=== PATIENT | male | born 1940 | race Caucasian/White ===

== ENCOUNTER → 2016-11-05 | Outpatient (CLI) | payer OTHER ==
[~2016-11-05] MED LIST: ACETAMINOPHEN325 M1 PO; ACIDOPHILUS1 EAC3 PO; ADULT LOW DOSE81 MG PO; APAP500 PO; ATIVAN0.5 MG PO; AVODART0.5 MG PO; AZO CRANBERRY250 MG PO; CELEBREX 200 M200 M1 PO; CERTAVITE SR-A1 EACH PO; COLACE100 MG PO; DIPHENHIST50 MG PO; FLAXSEED OIL1000 MG PO; FLOMAX0.4 MG PO; FUROSEMIDE 40 M40 M1 PO; KLOR-CON 1010 MEQ PO; LASIX 40 MG TAB40 M2 PO; LIORESAL 10 MG10 MG PO; LOPRESSOR 12.12.5 MG PO; LOPRESSOR25 PO; MAXIPIME 1 GM/D51 G1 IV; MIRALAX17 GM PO; NAPROSYN500 MG PO; NEPHROCAPS SOFT1 CAP PO; NEURONTIN 300300 M1 PO; NEURONTIN600 MG PO; NITROFURANTOIN100 MG PO; NORCO 5-325 TA1 EACH PO; OMEPRAZOLE20 M2 PO; OMEPRAZOLE20 MG PO; OXYCODONE HCL 55 MG PO; PERCOCET PO; SENNA8.6 MG PO; TAMSULOSIN HCL0.4 MG PO; VANCOMYCIN HCL 11 G2 IVPB; VICODIN 5-5001 EACH PO; VITAMIN D3400 UNIT PO
== END | disposition home or self-care (01) ==
LOC: RAD 08:13
DX: M16.12 Unilateral primary osteoarthritis, left hip (principal)

== ENCOUNTER → 2017-03-07 | Outpatient (CLI) | payer OTHER ==
[~2017-03-07] VITALS: Ht 170.2 cm; Wt 90.2 kg
[~2017-03-07] MED LIST changes: +ACIDOPHILUS1 EACH PO; +BACTRIM DS TAB1 EACH PO; +CIPRO500 MG PO; +LASIX 20 MG TAB20 MG PO; +OYSTER SHELL 51 EACH PO; +POTASSIUM20 PO; +SMZ/TMP; +TRAMADOL 50 MG50 MG PO
--- NOTE | ~2017-03-07 | HPC ---
[facility] [place] [address] PAIN MANAGEMENT CONSULTATION Name: LUCIO RODRÍGUEZ Room #: REG EMY [place]#: [id number] Admission: 03/07/17 Attend Phys: Kameron Noguera DO Discharge: Date of : 40 Report #: [id number] THIS REPORT FOR: //name// CC: Eleno Noguera HISTORY OF PRESENT ILLNESS: The patient is a 76-year-old gentleman seen in consultation at the request of Dr. Salazar Shelley for evaluation of pain in left hip, consideration for injection of same. The patient presents to the pain clinic today noting he had had back surgery on 07/21/2016 at [facility]. It sounds like he had an anterior-posterior staged lumbar fusion procedure. His chronic radicular pain, left and right leg did get better, though he has had some chronic left pain since. He is currently in rehabilitation trying to regain some mobility functions. He did have a fluoroscopically-guided left hip joint injection by Interventional Radiology on 11/05/2016 with excellent improvement of his left groin and hip pain. This lasted until earlier this month. Pain has begun to recur without antecedent trauma and overuse. Rates pain anywhere from 6-8 on a 0-10 visual analog scale, exacerbated with weightbearing and movement of the left hip. Denies specific radicular symptoms. REVIEW OF SYSTEMS: Complete review of systems attached to chart, was gone over with the patient. a 76-year-old gentleman, does not smoke or drink alcohol to excess. History of non-insulin dependent diabetes, currently treated with no medications. History of cirrhosis and a blood dyscrasia, though the patient is not aware of the specific diagnosis. History of benign prostatic hypertrophy with some component of urinary retention, uses tamsulosin and now has chronic indwelling Potter catheter. Gastroesophageal reflux for which he takes omeprazole. Lorazepam for some chronic anxiety, gabapentin, baclofen, oxycodone, tramadol for pain. 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 PHYSICAL EXAMINATION: GENERAL: Reveals a 5 feet 8 inches, 90 kilograms, gentleman, BMI is 31.1 kilograms per meter squared. VITAL SIGNS: Blood pressure 136/67, pulse 77, respirations 16. NECK: Thyroid unremarkable. HEART: Regular and rhythmical at this time. LUNGS: Clear. NEUROLOGIC: Cranial 2-12 are grossly intact. He is alert and oriented to person, place and time. Upper extremity strength is generally preserved. Modestly endomorphic build. Lower extremity strength is diminished, but generally symmetric, +1 pretibial edema in lower extremities, significant pain with rotation or movement of left hip, pain with weightbearing of the left hip. Markedly antalgic gait. [address] [address] PAIN MANAGEMENT CONSULTATION Name: LUCIO RODRÍGUEZ Room #: REG [facility] Darrick#: [id number] Admission: 03/07/17 Attend Phys: Kameron Noguera DO Discharge: Date of : 40 Report #: [id number] ASSESSMENT: 1. Degenerative joint disease, left hip. 2. Status post lumbar decompressive laminectomy. 3. Chronic debilitation. 4. History of cirrhosis. RECOMMENDATIONS: Left hip injection under fluoroscopy today. Follow up simply as needed. PROCEDURE NOTE: After written informed consent was obtained, the patient was taken to fluoroscopy suite, placed in the supine position. Skin overlying the left hip was cleansed with ChloraPrep. Skin wheal with Xylocaine was raised. Using a 22-gauge stylet needle, the needle was advanced to contact the left hip joint immediately distal to the femoral cap. Negative aspiration was accomplished. 1 mL of Omnipaque was injected, which showed spread within the joint. This was followed with 40 mg triamcinolone plus 2 mL of 0.5% preservative-free bupivacaine. Needle was removed. The area was cleansed, Band-Aids applied. The patient was told to observe the area for any signs of infection, use ice today, report to the ER If he has any signs of infection including systemic infection i.e. hyperpyrexia, etc. Thank you for allowing me to participate in the patient's care. We will see him in followup simply as needed. <ELECTRONICALLY SIGNED> By: Kameron Noguera DO 03/14/17 1427 1732 0005 Kameron Noguera DO /nt
[2017-03-07 14:08] VITALS: BP 132/67
== END ==
LOC: PAIN 07:12
DX: M16.12 Unilateral primary osteoarthritis, left hip (principal); R53.81 Other malaise; I10 Essential (primary) hypertension; K21.9 Gastro-esophageal reflux disease without esophagitis; M96.1 Postlaminectomy syndrome, not elsewhere classified; D69.6 Thrombocytopenia, unspecified; E11.9 Type 2 diabetes mellitus without complications; M79.2 Neuralgia and neuritis, unspecified; N40.1 Benign prostatic hyperplasia with lower urinary tract symptoms; N39.498 Other specified urinary incontinence; R39.198 Other difficulties with micturition; Z87.19 Personal history of other diseases of the digestive system; Z98.890 Other specified postprocedural states

== ENCOUNTER 2017-03-10 20:48 | Inpatient (IN) | payer OTHER ==
[~2017-03-10] VITALS: Ht 172.7 cm; Wt 81.7 kg
--- NOTE | ~2017-03-10 | EKG ---
[address] [employer] [place] [address] ELECTROCARDIOGRAM REPORT Name: ANNELUCIO Powers Room #: 170-10 ADM IN M.R.#: [id number] Admission: 03/10/17 Attend Phys: Velia Barber Discharge: Date of : 40 Report #: [id number] THIS REPORT FOR: //name// [facility] ED Test Date: 2017-03-10 Test Time: 22:35:51 Pat Name: LUCIO RODRÍGUEZ Department: Room: 170 Gender: M Flight Agent: : 1940 Requested By: Titi Arguello Order Number: [id number] MD: Guicho Haddad Measurements Intervals [place] Rate: 125 P: MS: QRS: 42 QRSD: 91 T: -55 QT: 293 QTc: 423 Interpretive Statements Atrial flutter with predominant 2:1 AV block Borderline repolarization abnormality Compared to ECG 02/03/2010 12:03:41 2:1 AV block now present Sinus rhythm no longer present Electronically Signed On 03-11-2017 8:37:39 CDT by Guicho Haddad [email or web address] <ELECTRONICALLY SIGNED> By: Guicho Haddad MD, [facility] 03/11/17 0837 34 Guicho Haddad MD, [facility] /EPI
--- NOTE | ~2017-03-10 | HC ---
[facility] [place] [address] CONSULTATION Name: ANNELUCIO Priya Room #: 454-P [facility] IN M.R.#: [id number] Admission: 03/10/17 Attend Phys: Velia Barber Discharge: Date of : 40 Report #: [id number] THIS REPORT FOR: //name// CC: Eleno Shelley REASON FOR CONSULTATION: I was asked to evaluate concerning fever and chills. 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 Over the last several days, issues have been left hip steroid injection on 03/07. Also, noted issues with his chronic indwelling Potter catheter, which blocked up. It had to be exchanged. Subsequently, he has developed acute onset yesterday fever and chills. No nausea, vomiting, or diarrhea. No cough or sputum production. No decubiti. He has not noticed any rash. He is on Bactrim suppressive therapy for his spine for he was not considered a reasonable surgical candidate in 2016. He notes that his back pain has been under good control. His main complaints have been arthritis symptoms in his knees and his left hip. He has had a right total hip arthroplasty in 2008, which has been functioning well. He has had lumbar surgery in 2016. Previous cerebral accident, cirrhosis of the liver, and neurogenic bladder. ALLERGIES: None. MEDICATIONS: As noted on his MAR, including his Bactrim and was started on vancomycin and Zosyn last evening through the emergency room. Medications otherwise as noted on his MAR. FAMILY HISTORY: Noncontributory. SOCIAL HISTORY: penitentiary resident, nonsmoker, no significant alcohol intake. REVIEW OF SYSTEMS: Noted above. PHYSICAL EXAMINATION: VITAL SIGNS: Maximum temperature is 102.6 degrees yesterday, now he is afebrile and hemodynamically stable. GENERAL: He was alert and cooperative and pleasant, in no acute distress, lying in bed. He did have a fair amount of pain mostly in his knees when he tried to roll over in bed. He is limited in his mobility. HEENT: Unremarkable other than wears glasses. NECK: Supple, no adenopathy. CHEST: Clear. HEART: Regular without murmur. ABDOMEN: Soft with mild tenderness in the lower abdomen. I did not appreciate [facility] [address] [place] [address] CONSULTATION Name: ANNELUCIO Room #: 454-P [facility] IN .R.#: [id number] Admission: 03/10/17 Attend Phys: Velia Barber Discharge: Date of : 40 Report #: [id number] any masses. Mild tenderness in the right CVA. GENITOURINARY: External genitalia unremarkable with indwelling Potter catheter. EXTREMITIES: Left hip site was unremarkable. Right hip site with 2+ edema and associated erythema both anteriorly and laterally. Range of motion in the right hip was unremarkable. Advanced degenerative arthritis in both knees. He had 2+ edema in both lower extremities. LABORATORY STUDIES: Blood cultures 1 of 2 showing gram-negative bacilli. Urine cultures pending. Urinalysis showed leukocytes and bacteria. Chest x-ray was clear. Sodium 140, potassium 4.3, bicarbonate 29, creatinine 1.4, and alkaline phosphatase 123. Liver function test normal. Hemoglobin 11.9, white count was 7.4, platelet count was 92,000. Lactate was 1.9. IMPRESSION: A 76-year-old long term resident with gram-negative bacteremia, acute onset of fever associated with recent complications from his chronic indwelling Potter catheter. I suspect urinary tract source of his presentation and bacteremia. He also has some erythema to the right hip and thigh, whether this is venous stasis from his edema or not is yet to be determined. Did not have symptoms to suggest prosthetic joint infection at this point in time. His left hip seems to have improved following steroid injection. No signs of diarrhea. No other intraabdominal source suspected. RECOMMENDATIONS: We will continue vancomycin and Zosyn pending final culture results. 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 Vancomycin will cover this satisfactorily. We will decide on his final antibiotic program following culture results. <ELECTRONICALLY SIGNED> By: Neil Shelley MD 03/13/17 0951 1425 1539 Neil Shelley MD /nt
--- NOTE | ~2017-03-10 | H ---
[facility] [place] [address] HISTORY AND PHYSICAL Name: LUCIO RODRÍGUEZ Room #: 454-P ADM IN .R.#: [id number] Admission: 03/10/17 Attend Phys: Velia Barber Discharge: Date of : 40 Report #: [id number] THIS REPORT FOR: //name// CC: Eleno Shelley DATE OF SERVICE: 03/11/2017 CHIEF COMPLAINT: Fever. HISTORY OF PRESENT ILLNESS: The patient is a 76-year-old gentleman with a chronic diskitis, who was sent to the Emergency Room from his care facility with fever. Symptoms began overnight when he complained of chills and temperature was noted at 102.6. Upon arrival to ER, he was complaining of chills and general body aches. He was treated for diskitis in the past with IV antibiotics and continues with oral Bactrim at this point, he has been living [facility] [place] [facility] for quite some time. He was due to have followup appointments, but when fever developed he was routed to the Emergency Room. PAST MEDICAL HISTORY: Cerebrovascular accident, history of unspecified cirrhosis, chronic Potter catheter. PAST SURGICAL HISTORY: He had had a lumbar surgery 2016. FAMILY HISTORY: Unknown. SOCIAL HISTORY: No current alcohol or tobacco use. ALLERGIES: None. MEDICATIONS: Baclofen, Lasix, potassium, Bactrim, tramadol, acidophilus, Flomax, Prilosec. REVIEW OF SYSTEMS: He denies headache, chest pain, shortness of breath, abdominal pain, nausea, vomiting, diarrhea, constipation, dysuria, syncope. OBJECTIVE: VITAL SIGNS: Temperature 36.4, pulse 78, respirations 16, blood pressure 116/59, O2 sat 100% on room air. GENERAL: He was asleep in the ER, but easily arousable, in no distress. Heart rate was better. HEAD AND NECK: Unremarkable. LUNGS: Clear. HEART: Regular. ABDOMEN: Soft, normoactive bowel sounds. GENITOURINARY: There is a Potter catheter. [facility] [address] [place] [address] HISTORY AND PHYSICAL Name: LUCIO RODRÍGUEZ Priya Room #: 454-P [facility] IN ..#: [id number] Admission: 03/10/17 Attend Phys: Velia Barber Discharge: Date of : 40 Report #: [id number] EXTREMITIES: No cyanosis, clubbing or edema. NEUROLOGIC: Global strength , 2/5 in the legs. LABORATORY DATA: Revealed a urinalysis with bacteria, white cells, nitrite, creatinine 1.4 with potassium 4.3. Initial lactic acid was 3.1, after fluids down to 1.9. White cell count of 7.4. ASSESSMENT: 1. Sepsis. 2. Febrile illness, possible urinary versus spinal source given history. 3. Chronic lumbar diskitis. 4. Chronic Potter catheter. 5. Cerebrovascular disease. 6. Chronic urinary retention with Potter catheter. PLAN: At this point, he is stabilized in ICU with fluid resuscitation and additional antibiotics have been ordered. Dr. Neil Shelley has been consulted, although his Bactrim for now is working with IV antibiotics until further information available, it is noted from 06/2016 that he has had chronic Potter due to retention and this will continue Lovenox for DVT prophylaxis for now and watch his platelet count. He continues do not resuscitate status. <ELECTRONICALLY SIGNED> By: Remy Hopkins MD 03/11/17 1230 0920 1004 Remy Hopkins MD /nt
--- NOTE | ~2017-03-10 | D ---
[facility] [place] [address] DISCHARGE SUMMARY Name: MEERITALUCIO BOWIE Room #: 310-P [facility] IN .R.#: [id number] Admission: 03/10/17 Attend Phys: Velia Barber Discharge: 03/14/17 Date of : 40 Report #: [id number] THIS REPORT FOR: //name// CC: Eleno Shelley DATE OF SERVICE: 03/14/2017 FINAL DIAGNOSES: 1. Sepsis. 2. Urinary tract infection. 3. Obstructive uropathy. 4. Chronic vertebral diskitis. 5. Anemia of chronic disease. HOSPITAL COURSE: The patient was admitted with fever and was diagnosed with sepsis, a urinary source was considered the issue. Ultimately, urine and blood grew Enterobacter. Dr. Neil Shelley was consulted and managed antibiotics. He stabilized with conservative medical treatment. Do not resuscitate status continued along with his usual home medications. He takes Bactrim for chronic vertebral osteo suppression. He had no other interval complications. PHYSICAL EXAMINATION: GENERAL: On the day of discharge, he was awake and alert, eating breakfast. VITAL SIGNS: He had stable vital signs and had been afebrile. LUNGS: Clear. HEART: Regular. ABDOMEN: Soft, normoactive bowel sounds. EXTREMITIES: Showed no edema. Urine was draining into a Potter catheter, clear yellow. PLAN: He will transfer back to a detention facility with diet and activity as tolerated, physical and occupational therapy and continue with chronic Potter for chronic urinary obstruction. The center care facility should irrigate as needed and reposition if not draining properly. Continue Cipro for 10 days and continue his Bactrim suppression indefinitely. He will continue do not resuscitate status. <ELECTRONICALLY SIGNED> By: Remy Hopkins MD 03/15/17 0814 0832 0846 Remy Hopkins MD /nt
[~2017-03-10 20:48] MED LIST changes: -BACTRIM DS TAB1 EACH PO; -CIPRO500 MG PO
[2017-03-10 21:10] LABS: URINE BILIRUBIN NEGATIVE (Negative); URINE BLOOD 3+ (Negative); URINE COLOR YELLOW; URINE GLUCOSE-RANDOM* NEGATIVE (Negative); URINE KETONES NEGATIVE (Negative); URINE LEUKOCYTES-REFLEX 1+ (Negative); URINE PROTEIN (DIPSTICK) 1+ (Negative); URINE SPECIFIC GRAVITY 1.015 (1.003-1.035)
[2017-03-10 21:26] LABS: CALCIUM OXALATE 4-10 Moderate /LPF (None Seen)
[2017-03-10 21:27] LABS: AMORPHOUS PHOSPHATES Few /LPF (None Seen); CASTS None Seen /LPF (None Seen); SQUAMOUS None Seen /LPF (0-3); URINE RBC >20 Many /HPF (0-2)
[2017-03-10 21:31] LABS: HEMATOCRIT 35.4 % (42.0-52.0); HEMOGLOBIN 11.9 gm/dL (14.0-18.0); MCH 31.7 pg (26.0-34.0); MCHC 33.7 g/dL (28.0-37.0); PLATELET COUNT 92 thou/uL (150-400); RBC 3.77 mil/uL (4.50-6.00); RDW 14.8 % (10.5-14.5); WBC 7.4 thou/uL (4.0-11.0)
[2017-03-10 21:35] LABS: CREATININE 1.4 mg/dL (0.7-1.3); POTASSIUM 4.3 mmol/L (3.5-5.1)
[2017-03-10 21:37] LABS: MANUAL DIFF YES
[2017-03-10 21:40] LABS: ALBUMIN 3.6 g/dL (3.4-5.0); TOTAL BILIRUBIN 0.8 mg/dL (<0.1-1.0); TOTAL PROTEIN 7.7 g/dL (6.4-8.2)
[2017-03-10 22:27] LABS: ABSOLUTE NEUTROPHILS 6.5 thou/uL (1.4-8.2); ANISOCYTOSIS SLIGHT; TOTAL CELL COUNT 100
[2017-03-11 07:17] VITALS: BP 116/59
[2017-03-11 09:37] VITALS: BP 110/51
[2017-03-11 10:19] VITALS: BP 117/64
[2017-03-11 12:00] VITALS: BP 111/62
[2017-03-11 16:00] VITALS: BP 124/68
[2017-03-11 18:09] LABS: CALCIUM 8.5 mg/dL (8.5-10.1); POTASSIUM 3.9 mmol/L (3.5-5.1)
[2017-03-11 19:28] VITALS: BP 103/52
[2017-03-12 00:15] VITALS: BP 115/64
[2017-03-12 04:15] VITALS: BP 117/63
[2017-03-12 04:47] LABS: HEMATOCRIT 26.3 % (42.0-52.0); MCHC 34.4 g/dL (28.0-37.0); MCV 93.2 fL (80.0-100.0); RBC 2.82 mil/uL (4.50-6.00); RDW 14.8 % (10.5-14.5); WBC 6.4 thou/uL (4.0-11.0)
[2017-03-12 05:07] LABS: CALCIUM 8.6 mg/dL (8.5-10.1); POTASSIUM 4.1 mmol/L (3.5-5.1)
[2017-03-12 07:22] VITALS: BP 118/59
[2017-03-12 11:35] VITALS: BP 120/69
[2017-03-12 15:43] VITALS: BP 121/62
[2017-03-12 19:16] VITALS: BP 128/71
[2017-03-13 03:50] VITALS: BP 152/88
[2017-03-13 07:56] VITALS: BP 141/78
[2017-03-13 17:00] VITALS: BP 110/74
[2017-03-14 04:00] VITALS: BP 128/73
[2017-03-14 08:00] VITALS: BP 144/82
[2017-03-14] MEDS ORDERED: CIPRO500 MG PO (08:26)
[2017-03-14] MEDS ORDERED: BACTRIM DS TAB1 EACH PO (08:27)
== END 2017-03-14 16:50 | DRG 871 ==
LOC: ER 20:48 → EROBS 22:50 → 3N 22:50 → 4W 03-11 10:07 → 3N 03-13 18:04
PROVIDERS: Internal Medicine Geriatric Medicine; Physician Assistant
DX: A41.9 Sepsis, unspecified organism (principal); N17.0 Acute kidney failure with tubular necrosis; N39.0 Urinary tract infection, site not specified; L03.90 Cellulitis, unspecified; M46.20 Osteomyelitis of vertebra, site unspecified; N13.9 Obstructive and reflux uropathy, unspecified; D63.8 Anemia in other chronic diseases classified elsewhere; M46.46 Discitis, unspecified, lumbar region; K74.60 Unspecified cirrhosis of liver; Z90.49 Acquired absence of other specified parts of digestive tract; Z79.899 Other long term (current) drug therapy; Z86.73 Personal history of transient ischemic attack (TIA), and cerebral infarction without residual deficits
CPT/HCPCS: 10045; 10096

== ENCOUNTER 2017-08-10 02:15 | Emergency (ER) | payer OTHER ==
[~2017-08-10] VITALS: Ht 172.7 cm; Wt 95.3 kg
[~2017-08-10 02:15] MED LIST changes: +BACTRIM DS TAB1 EACH PO; +CIPRO500 MG PO
[2017-08-10] MEDS ORDERED: LASIX 20 MG TAB20 MG PO (02:42)
[2017-08-10] MEDS ORDERED: DOCUSATE SODIU100 MG PO (02:42)
[2017-08-10] MEDS ORDERED: ACIDOPHILUS1 EAC3 PO (02:42)
[2017-08-10] MEDS ORDERED: MULTIPLE VITAM1 EAC2 PO (02:43)
[2017-08-10] MEDS ORDERED: MAGOX 400400 MG PO (02:43)
[2017-08-10] MEDS ORDERED: IRON325 PO (02:44)
[2017-08-10] MEDS ORDERED: OMEPRAZOLE 20 M20 MG PO (02:44)
[2017-08-10] MEDS ORDERED: POTASSIUM20 PO (02:44)
[2017-08-10] MEDS ORDERED: OYST-CAL-500500 MG PO (02:45)
[2017-08-10] MEDS ORDERED: BACTRIM DS TAB1 EACH PO (02:45)
[2017-08-10] MEDS ORDERED: TRAMADOL 50 MG50 MG PO (02:46)
[2017-08-10] MEDS ORDERED: LIORESAL 10 MG10 MG PO (02:46)
[2017-08-10] MEDS ORDERED: ATIVAN0.5 MG PO (02:46)
[2017-08-10] MEDS ORDERED: OXYCODONE HCL 55 MG PO (02:47)
[2017-08-10 03:02] LABS: HEMATOCRIT 27.1 % (42.0-52.0); HEMOGLOBIN 9.4 gm/dL (14.0-18.0); MCH 33.6 pg (26.0-34.0); MCHC 34.6 g/dL (28.0-37.0); MCV 97.2 fL (80.0-100.0); PLATELET COUNT 62 thou/uL (150-400); RBC 2.79 mil/uL (4.50-6.00); RDW 13.9 % (10.5-14.5); WBC 4.5 thou/uL (4.0-11.0)
[2017-08-10 03:04] LABS: MANUAL DIFF YES
[2017-08-10 03:05] LABS: CALCIUM 9.1 mg/dL (8.5-10.1); CREATININE 1.1 mg/dL (0.7-1.3); POTASSIUM 4.2 mmol/L (3.5-5.1)
[2017-08-10 03:24] LABS: ABSOLUTE NEUTROPHILS 3.4 thou/uL (1.4-8.2); TOTAL CELL COUNT 100
[2017-08-10 03:25] LABS: LARGE PLATELETS OCCASIONAL
== END 2017-08-10 04:53 | disposition home or self-care (01) ==
LOC: ER 02:15
PROVIDERS: Emergency Medicine
DX: E11.40 Type 2 diabetes mellitus with diabetic neuropathy, unspecified (principal); M86.9 Osteomyelitis, unspecified; F41.9 Anxiety disorder, unspecified; N40.0 Benign prostatic hyperplasia without lower urinary tract symptoms; Z87.440 Personal history of urinary (tract) infections; Z90.49 Acquired absence of other specified parts of digestive tract

== ENCOUNTER 2017-09-23 09:30 | Inpatient (IN) | payer OTHER ==
[~2017-09-23] VITALS: Ht 172.7 cm; Wt 94.4 kg
--- NOTE | ~2017-09-23 | D ---
[facility] [place] [address] DISCHARGE SUMMARY Name: LUCIO RODRÍGUEZ Room #: 408-P [facility] IN M.R.#: [id number] Admission: 09/26/17 Attend Phys: Remy Hopkins MD Discharge: 10/04/17 Date of : 40 Report #: [id number] THIS REPORT FOR: //name// CC: Neil Lacy FINAL DIAGNOSES: 1. Cellulitis of the lower legs. 2. Venous stasis wounds, both lower legs. 3. Cirrhosis. HOSPITAL COURSE: The patient was admitted with fever and pain and swelling of the legs. He was diagnosed with cellulitis. Multiple consultants managed his case and antibiotics were ordered. He had wound care with bedside debridement at times and Pulsavac care. We researched the possibility of LTAC placement for ongoing wound care and antibiotics, but his insurance declined this. Otherwise, he was treated symptomatically. Once I felt his legs were in a suitable situation, he will be managed in a assisted level and transferred back to [facility] for continued wound care. I have discussed antibiotics with Dr. Shelley and oral Levaquin was ordered. DISPOSITION: He will return to [facility]. Wound care per written orders. Diet and activity as tolerated. He has a chronic Potter catheter, which is being managed by the in-house physician. I have added Demadex to his regimen. He will continue 10 more days of Levaquin. <ELECTRONICALLY SIGNED> By: Remy Hopkins MD 10/06/17 0957 1246 1301 Remy Hopkins MD /nt
--- NOTE | ~2017-09-23 | HC ---
[facility] [place] [address] CONSULTATION Name: LUCIO RODRÍGUEZ Room #: [facility]..#: [id number] Admission: 09/23/17 Attend Phys: Remy Hopkins MD Discharge: Date of : 40 Report #: [id number] THIS REPORT FOR: //name// CC: Neil Lacy DATE OF SERVICE: 09/24/2017 REASON FOR CONSULTATION: Painful cellulitis of both legs in the setting of diabetes mellitus type 2, peripheral neuropathy and venous stasis with inflammation and ulceration. HISTORY OF PRESENT ILLNESS: The patient is a 76-year-old gentleman with a history of diabetes mellitus type 2 with diabetic peripheral neuropathy and a history of peripheral vascular disease and alcoholic cirrhosis. The patient has had venous stasis of his legs, which became more inflamed and painful. Over the past month, he has been treated apparently with oral antibiotics. The patient was admitted through the Emergency Room with increasing redness and pain of his legs and some shortness of breath. Wound Care is consulted for ulceration and cellulitis of his legs. The patient is being seen by Dr. Neil Shelley of Infectious Disease as well. PAST MEDICAL HISTORY: 1. Diabetes mellitus type 2. 2. Diabetes mellitus with peripheral neuropathy. 3. History of anxiety. 4. History of alcohol abuse and alcoholic liver cirrhosis. 5. History of idiopathic peripheral autonomic neuropathy. 6. History of pancytopenia. PAST SURGICAL HISTORY: Back surgery 2016, appendectomy. MEDICATIONS: Include Tylenol, Neurontin, Ativan, recently discontinued Bactrim, multiple vitamins, omeprazole, K-Dur, iron, baclofen, oxycodone, MiraLax, and Flomax. ALLERGIES: No known drug allergies. SOCIAL HISTORY: The patient lives in a residential residential. REVIEW OF SYSTEMS: Denies fever or chills. Has good appetite. Complains of pain in his legs. PHYSICAL EXAMINATION: GENERAL: Shows chronically ill appearing elderly gentleman. [facility] [address] [place] [address] CONSULTATION Name: LUCIO RODRÍGUEZ Room #: [address] [place] [address]#: [id number] Admission: 09/23/17 Attend Phys: Remy Hopkins MD Discharge: Date of : 40 Report #: [id number] VITAL SIGNS: He is afebrile. HEENT: Mucous membranes are moist. NECK: Supple. LUNGS: Respirations are unlabored. ABDOMEN: Soft and nontender. BACK: Examination of his back shows no wounds. EXTREMITIES: Examination of the lower extremities shows cellulitis of both legs below the knee with changes of chronic venous stasis with discoloration. There is evidence of chronic inflammation and chronic venous stasis dermatosis. There are scattered superficial ulcerations of the lower legs and also involving the feet in between the toes. There are no large ulcers, but multiple small scattered ulcers with skin maceration. Legs are red and tender. IMPRESSION: 1. Diabetes mellitus type 2 with peripheral neuropathy. 2. 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 3. Cellulitis of right and left legs. 4. Venous stasis with ulceration and inflammation of both legs. 5. History of peripheral vascular disease. 6. Moderate protein-calorie malnutrition with albumin 2.7. 7. History of alcoholic cirrhosis. PLAN: Antibiotic coverage per Dr. Neil Shelley. Order topical morphine and Silvadene to the legs for symptomatic relief and for the bacteriostatic affect. Morphine and Silvadene applied with Xeroform twice daily with ABD, Kerlix and Sabas wrap. We will order bilateral lower extremity arterial Dopplers to assess his arterial sufficiency. Once cellulitis has resolved, the patient will be seen in clinic setting at [facility] and if arterial supply is adequate, then we can consider more effective 2-layer compression wraps. In the meantime, IV antibiotics, topical wound care to clear up the cellulitis. Wound Care team will follow. <ELECTRONICALLY SIGNED> By: Johnny Gillette MD 09/25/17 1718 1230 2141 Johnny Gillette MD /nt
--- NOTE | ~2017-09-23 | EKG ---
[address] [place] [address] ELECTROCARDIOGRAM REPORT Name: LUCIO RODRÍGUEZ Room #: 408-[facility] M..#: [id number] Admission: 09/23/17 Attend Phys: Remy Hopkins MD Discharge: Date of : 40 Report #: [id number] THIS REPORT FOR: //name// [facility] ED Test Date: 2017-09-23 Test Time: 10:46:50 Pat Name: LUCIO RODRÍGUEZ Department: Room: 408 Gender: M Title Examiner: ANAM : 1940 Requested By: Mary Nobles Order Number: [id number] MD: Guicho Haddad Measurements Intervals [place] Rate: 69 P: 52 KS: 173 QRS: 48 QRSD: 104 T: 47 QT: 416 QTc: 446 Interpretive Statements Sinus rhythm No significant abnormality Compared to ECG 03/10/2017 22:35:51 Atrial flutter no longer present Electronically Signed On 09-26-2017 7:13:37 [employer] by Guicho Haddad [email or web address] <ELECTRONICALLY SIGNED> By: Guicho Haddad MD, [facility] 09/26/17 0713 1046 1046 Guicho Haddad MD, [facility] /EPI
--- NOTE | ~2017-09-23 | HC ---
[facility] [place] [address] CONSULTATION Name: LUCIO RODRÍGUEZ Room #: [facility]..#: [id number] Admission: 09/23/17 Attend Phys: Remy Hopkins MD Discharge: Date of : 40 Report #: [id number] THIS REPORT FOR: //name// CC: Neil Lacy REASON FOR CONSULTATION: I was asked to evaluate concerning lower extremity venous stasis wounds with secondary infection. HISTORY OF PRESENT ILLNESS: The patient was a 76-year-old with known history of vertebral osteomyelitis who had been on Bactrim suppression for extensive disease that was nonoperable, presents now with shortness of breath and lower extremity wounds with increased pain. No documented fever, chills or sweats. He does have underlying peripheral neuropathy. No cough or sputum production. No abdominal pain or dysuria. Now has an indwelling Potter catheter. ALLERGIES: None known. MEDICATIONS: As noted on his OCT, now off Bactrim, exactly when it was discontinued is not yet clear. Now on cefazolin. PAST MEDICAL HISTORY: Osteoarthritis, hyperlipidemia, peripheral neuropathy, hypertension, chronic lymphedema, cirrhosis, appendectomy, right total hip arthroplasty, Staphylococcal epidermidis diskitis L2 through L4. He has been on chronic suppressive therapy since 2016. FAMILY HISTORY: Noncontributory. SOCIAL HISTORY: intermediate resident, nonsmoker, no significant alcohol intake. REVIEW OF SYSTEMS: As noted above. It is noted that the patient has had a chronic indwelling Potter catheter. He has neurogenic bladder. PHYSICAL EXAMINATION: VITAL SIGNS: Afebrile and hemodynamically stable. GENERAL: The patient was alert and cooperative. He did have some confusion which is his baseline. He had pulled off his telemetry stickers as well as pulled out his IV. HEENT: Unremarkable. He wore glasses. NECK: Supple. LUNGS: Clear. HEART: Regular, without murmur. ABDOMEN: Soft, nontender, no hepatosplenomegaly or mass. GENITOURINARY: External genitalia unremarkable with indwelling Potter catheter. EXTREMITIES: He had no sacral decubiti. He had lower extremity edema 2+ [facility] [address] [place] [address] CONSULTATION Name: LUCIO RODRÍGUEZ Priya Room #: 408-P [facility]..#: [id number] Admission: 09/23/17 Attend Phys: Remy Hopkins MD Discharge: Date of : 40 Report #: [id number] bilaterally. Extensive venous stasis wounds involving both lower extremities from mid calf down. Associated cellulitis. No lymphangitis up the medial thigh. Lower extremity pulses were adequate. Sensation was intact. He had a fair amount of pain in both feet. LABORATORY STUDIES: Sodium 139, potassium 4, creatinine 1.1. Hemoglobin 10.4, white count 7.9, platelet count 95,000. BNP 66. Chest x-ray clear. IMPRESSION: A 76-year-old with: 1. Venous stasis disease. 2. Peripheral neuropathy. 3. Cirrhosis. 4. Diabetes. 5. Chronic osteomyelitis of the lumbar spine with venous stasis wounds secondarily infected. PLAN: Recommend leg elevation, mild compression, topical wound care, IV antibiotic therapy. Given the chronic nature of these wounds, would expect gram-negative organisms. We will continue with nosocomial IV antibiotic therapy. <ELECTRONICALLY SIGNED> By: Neil Shelley MD 09/25/17 1330 1223 2102 Neil Shelley MD /nt
--- NOTE | ~2017-09-23 | H ---
[facility] [place] [address] HISTORY AND PHYSICAL Name: LUCIO RODRÍGUEZ Room #: 408-P [facility]..#: [id number] Admission: 09/23/17 Attend Phys: Remy Hopkins MD Discharge: Date of : 40 Report #: [id number] THIS REPORT FOR: //name// CC: Salazar Lacy DATE OF SERVICE: 09/23/2017 CHIEF COMPLAINT: Leg pain. HISTORY OF PRESENT ILLNESS: The patient is a 76-year-old gentleman with multiple medical problems, who came to the ER with leg pain. He lives in a local jail and they have been providing wound care , but today he was experiencing sharp stabbing pain intermittently in the lower legs, especially on the left. He said the left leg has had a little more drainage than usual and he is noted they seem to be reddened more so than baseline. It has been an ongoing issue for a number of years. He uses tramadol and oxycodone for pain. PAST MEDICAL HISTORY: Peripheral neuropathy, pancytopenia, history of osteomyelitis, history of diskitis, history of venous stasis wounds to the legs with recurrent cellulitis. 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 There is a history of alcohol misuse and related liver disease with cirrhosis, chronic urinary retention with a Potter catheter. PAST SURGICAL HISTORY: He has had lumbar surgery. This has left him with lower extremity weakness. FAMILY HISTORY: Noncontributory. SOCIAL HISTORY: No current alcohol or tobacco use. He lives in the local nursing center. ALLERGIES: No known drug allergies. MEDICATIONS: Acidophilus, Colace, magnesium, multivitamin, omeprazole, potassium, iron, calcium, tramadol, baclofen, lorazepam, oxycodone, BuSpar, MiraLax, Flomax. He had been on Lasix and Bactrim recently. REVIEW OF SYSTEMS: Other than pain, he denies headache, chest pain, shortness of breath, abdominal pain, nausea, vomiting, diarrhea, constipation, dysuria, syncope, fall, or fever. PHYSICAL EXAMINATION: [address] [address] HISTORY AND PHYSICAL Name: LUCIO RODRÍGUEZ Room #: 408-P [facility]#: [id number] Admission: 09/23/17 Attend Phys: Remy Hopkins MD Discharge: Date of : 40 Report #: [id number] VITAL SIGNS: Temperature 36.6, pulse 89, respirations 18, blood pressure . GENERAL: Awake, alert, in no distress. HEAD AND NECK: Unremarkable. LUNGS: Clear. HEART: Regular. ABDOMEN: Soft, normoactive bowel sounds. Potter in place. EXTREMITIES: Unwrapped both lower legs. He has tense nonpitting edema with circumferential erythema, excoriations, and thickened leathery skin on both lower legs. There is swelling and redness of the feet and toes. LABORATORY DATA: Reviewed. ASSESSMENT: 1. Bilateral lower leg cellulitis. 2. Chronic venous stasis wounds of both lower legs. 3. Suspect peripheral artery disease. 4. Lumbar myelopathy. 5. Chronic neurogenic bladder with urinary retention and Potter catheter. 6. History of cirrhosis. PLAN: I will start him on Ancef with blood cultures and continue with routine medications. I have asked Dr. Shelley and Dr. Pham to see him in consultation. <ELECTRONICALLY SIGNED> By: Remy Hopkins MD 09/24/17 0754 1726 1835 Remy Hopkins MD /nt
[~2017-09-23 09:30] MED LIST changes: +DOCUSATE SODIU100 MG PO; +IRON325 PO; +MAGOX 400400 MG PO; +MULTIPLE VITAM1 EAC2 PO; +OMEPRAZOLE 20 M20 MG PO; +OYST-CAL-500500 MG PO
[2017-09-23 09:32] VITALS: BP 117/54
[2017-09-23] MEDS ORDERED: BUSPIRONE HCL10 MG (09:49)
[2017-09-23 11:01] LABS: ABSOLUTE NEUTROPHILS 4.4 thou/uL (1.4-8.2); BASOPHILS 1.4 % (0.0-2.0); EOSINOPHILS 4.9 % (0.0-3.0); HEMATOCRIT 32.6 % (42.0-52.0); HEMOGLOBIN 11.3 gm/dL (14.0-18.0); LYMPHOCYTES 12.5 % (24.0-44.0); MCH 32.2 pg (26.0-34.0); MCHC 34.6 g/dL (28.0-37.0); MCV 93.1 fL (80.0-100.0); MONOCYTES 11.2 % (1.0-8.0); RDW 14.2 % (10.5-14.5); WBC 6.2 thou/uL (4.0-11.0)
[2017-09-23 11:19] LABS: CALCIUM 9.2 mg/dL (8.5-10.1); POTASSIUM 3.8 mmol/L (3.5-5.1)
[2017-09-23 11:25] LABS: ALBUMIN 2.7 g/dL (3.4-5.0); DIRECT BILIRUBIN 0.4 mg/dL (<0.1-0.3); TOTAL PROTEIN 6.2 g/dL (6.4-8.2)
[2017-09-23 11:54] LABS: PLATELET COUNT 97 thou/uL (150-400)
[2017-09-23 19:44] VITALS: BP 126/76
[2017-09-23 20:44] VITALS: BP 122/40
[2017-09-24 04:01] LABS: HEMATOCRIT 30.2 % (42.0-52.0); HEMOGLOBIN 10.4 gm/dL (14.0-18.0); MCH 32.3 pg (26.0-34.0); MCHC 34.2 g/dL (28.0-37.0); MCV 94.5 fL (80.0-100.0); RBC 3.2 mil/uL (4.50-6.00); RDW 14.3 % (10.5-14.5); WBC 7.9 thou/uL (4.0-11.0)
[2017-09-24 04:08] VITALS: BP 124/71
[2017-09-24 04:08] LABS: CALCIUM 8.4 mg/dL (8.5-10.1); CREATININE 1.1 mg/dL (0.7-1.3)
[2017-09-24 08:23] VITALS: BP 112/54
[2017-09-24 16:24] VITALS: BP 123/49
[2017-09-24 18:50] LABS: URINE BILIRUBIN NEGATIVE (Negative); URINE BLOOD 3+ (Negative); URINE CLARITY SL CLOUDY; URINE COLOR YELLOW; URINE GLUCOSE-RANDOM* NEGATIVE (Negative); URINE KETONES NEGATIVE (Negative); URINE PROTEIN (DIPSTICK) 1+ (Negative); URINE UROBILINOGEN 0.2 E.U./dl (0.2-1.0)
[2017-09-24 18:51] LABS: URINE LEUKOCYTES-REFLEX 2+ (Negative); URINE NITRITE-REFLEX POSITIVE (Negative)
[2017-09-24 19:41] VITALS: BP 109/49
[2017-09-24 19:57] LABS: SQUAMOUS 0-3 Few /LPF (0-3)
[2017-09-24 19:58] LABS: CASTS None Seen /LPF (None Seen); URINE RBC >20 Many /HPF (0-2); URINE WBC-REFLEX >25 Many /HPF (0-5)
[2017-09-24 19:59] LABS: BACTERIA-REFLEX 1-9 Few /HPF (None Seen); CALCIUM OXALATE 0-3 Few /LPF (None Seen)
[2017-09-25 04:00] VITALS: BP 126/52
[2017-09-25 08:00] VITALS: BP 126/56
[2017-09-25 16:00] VITALS: BP 116/55
[2017-09-25 19:40] VITALS: BP 106/46
[2017-09-26 04:13] VITALS: BP 123/50
[2017-09-26 04:28] LABS: HEMATOCRIT 29.8 % (42.0-52.0); HEMOGLOBIN 10.3 gm/dL (14.0-18.0); MCH 32.5 pg (26.0-34.0); MCHC 34.5 g/dL (28.0-37.0); RBC 3.17 mil/uL (4.50-6.00); RDW 14.6 % (10.5-14.5); WBC 6.7 thou/uL (4.0-11.0)
[2017-09-26 04:40] LABS: CALCIUM 7.9 mg/dL (8.5-10.1); CREATININE 1.1 mg/dL (0.7-1.3); POTASSIUM 3.8 mmol/L (3.5-5.1)
[2017-09-26 08:26] VITALS: BP 122/51
[2017-09-26 16:36] VITALS: BP 107/54
[2017-09-26 20:00] VITALS: BP 118/56
[2017-09-27] VITALS: BP 136/58
[2017-09-27 04:00] VITALS: BP 127/60
[2017-09-27 08:25] VITALS: BP 103/55
[2017-09-27 15:48] VITALS: BP 95/52
[2017-09-27 19:48] VITALS: BP 117/42
[2017-09-28 04:00] VITALS: BP 130/51
[2017-09-28 07:10] VITALS: BP 101/45
[2017-09-28 15:17] VITALS: BP 145/65
[2017-09-28 20:00] VITALS: BP 119/80
[2017-09-29 04:00] VITALS: BP 114/63
[2017-09-29 06:05] LABS: HEMATOCRIT 31.2 % (42.0-52.0); HEMOGLOBIN 10.6 gm/dL (14.0-18.0); MCH 32.1 pg (26.0-34.0); MCV 94.4 fL (80.0-100.0); RBC 3.3 mil/uL (4.50-6.00); RDW 14.6 % (10.5-14.5); WBC 5.1 thou/uL (4.0-11.0)
[2017-09-29 06:14] LABS: CALCIUM 8.8 mg/dL (8.5-10.1); CREATININE 0.9 mg/dL (0.7-1.3); POTASSIUM 3.9 mmol/L (3.5-5.1)
[2017-09-29] MEDS ORDERED: LIORESAL 10 MG10 MG PO (09:14)
[2017-09-29] MEDS ORDERED: CEFEPIME 1 GM VI1 G2 INJECTION (09:14)
[2017-09-29] MEDS ORDERED: OXYCODONE HCL 55 MG PO (09:15)
[2017-09-29 09:18] VITALS: BP 125/64
[2017-09-29 17:21] VITALS: BP 110/60
[2017-09-29 19:30] VITALS: BP 111/46
[2017-09-30 00:15] VITALS: BP 123/61
[2017-09-30 05:00] VITALS: BP 102/52
[2017-09-30 07:20] VITALS: BP 116/58
[2017-09-30 07:30] VITALS: BP 164/93
[2017-09-30 15:33] VITALS: BP 104/45
[2017-09-30 20:00] VITALS: BP 118/60
[2017-10-01 04:42] VITALS: BP 133/70
[2017-10-01 07:35] VITALS: BP 113/53
[2017-10-01 15:19] VITALS: BP 125/59
[2017-10-01 20:00] VITALS: BP 112/56
[2017-10-02 04:05] VITALS: BP 126/66
[2017-10-02 07:50] VITALS: BP 135/67
[2017-10-02 16:11] VITALS: BP 117/63
[2017-10-02 19:30] VITALS: BP 121/60
[2017-10-03 03:23] LABS: HEMATOCRIT 29.1 % (42.0-52.0); HEMOGLOBIN 10.1 gm/dL (14.0-18.0); MCH 32.6 pg (26.0-34.0); MCHC 34.7 g/dL (28.0-37.0); MCV 93.8 fL (80.0-100.0); RBC 3.11 mil/uL (4.50-6.00); RDW 14.3 % (10.5-14.5); WBC 5.8 thou/uL (4.0-11.0)
[2017-10-03 03:29] LABS: CALCIUM 8.5 mg/dL (8.5-10.1); CREATININE 0.9 mg/dL (0.7-1.3)
[2017-10-03 04:00] VITALS: BP 136/70
[2017-10-03 07:13] VITALS: BP 130/56
[2017-10-03 15:15] VITALS: BP 120/47
[2017-10-03 19:41] VITALS: BP 111/46
[2017-10-04 03:09] VITALS: BP 123/48
[2017-10-04] MEDS ORDERED: NEURONTIN 300300 M1 PO (10:07)
[2017-10-04] MEDS ORDERED: MIRALAX17 GM PO (10:07)
[2017-10-04] MEDS ORDERED: OMEPRAZOLE 20 M20 MG PO (10:07)
[2017-10-04] MEDS ORDERED: LEVAQUIN 500 M500 M2 PO (10:07)
[2017-10-04] MEDS ORDERED: ATIVAN0.5 MG PO (10:07)
[2017-10-04] MEDS ORDERED: MULTIPLE VITAM1 EAC2 PO (10:07)
[2017-10-04] MEDS ORDERED: OXYCODONE HCL 55 MG PO ×2 (10:10)
[2017-10-04] MEDS ORDERED: DEMADEX20 MG PO (10:10)
[2017-10-04 10:11] VITALS: BP 104/46
[2018-03-29] MEDS ORDERED: MIRALAX17 GM PO (15:24)
[2018-03-29] MEDS ORDERED: DEMADEX20 MG PO (15:24)
[2018-03-29] MEDS ORDERED: OXYCODONE HCL 55 MG PO (15:26)
[2018-03-29] MEDS ORDERED: CIPRO500 MG PO (15:29)
[2018-03-29] MEDS ORDERED: LIORESAL 10 MG10 MG PO (15:30)
[2018-03-29] MEDS ORDERED: TYLENOL325 MG PO (15:31)
[2018-03-29] MEDS ORDERED: ATIVAN0.5 MG PO (15:31)
== END 2017-10-04 14:25 | DRG 871 ==
LOC: ER 09:30 → EROBS 12:55 → 4N 19:43
PROVIDERS: Emergency Medicine; Internal Medicine Geriatric Medicine; Specialist
DX: A41.9 Sepsis, unspecified organism (principal); E43 Unspecified severe protein-calorie malnutrition; L03.116 Cellulitis of left lower limb; M46.26 Osteomyelitis of vertebra, lumbar region; D61.818 Other pancytopenia; L03.115 Cellulitis of right lower limb; I87.2 Venous insufficiency (chronic) (peripheral); E11.51 Type 2 diabetes mellitus with diabetic peripheral angiopathy without gangrene; M19.90 Unspecified osteoarthritis, unspecified site; F41.9 Anxiety disorder, unspecified; K70.30 Alcoholic cirrhosis of liver without ascites; E11.43 Type 2 diabetes mellitus with diabetic autonomic (poly)neuropathy; N40.0 Benign prostatic hyperplasia without lower urinary tract symptoms; I10 Essential (primary) hypertension; E78.5 Hyperlipidemia, unspecified; Z96.641 Presence of right artificial hip joint; E11.69 Type 2 diabetes mellitus with other specified complication; N31.9 Neuromuscular dysfunction of bladder, unspecified; R33.9 Retention of urine, unspecified; Z90.49 Acquired absence of other specified parts of digestive tract; Z68.31 Body mass index [BMI] 31.0-31.9, adult; Z79.899 Other long term (current) drug therapy

== ENCOUNTER 2017-10-29 06:39 | Inpatient (IN) | payer OTHER ==
[~2017-10-29] VITALS: Ht 172.7 cm; Wt 90.7 kg
--- NOTE | ~2017-10-29 | EKG ---
[place] [address] 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1940 Requested By: Neil Pretty Order Number: [id number] MD: Guicho Haddad Measurements Intervals [place] Rate: 103 P: 49 DC: 176 QRS: 18 QRSD: 105 T: -31 QT: 323 QTc: 423 Interpretive Statements Sinus tachycardia Borderline repolarization abnormality Baseline wander in lead(s) V2,V3 Compared to ECG 09/23/2017 10:46:50 Heart rate has increased Electronically Signed On 10-30-2017 13:41:17 CDT by Guicho Haddad [email or web address] <ELECTRONICALLY SIGNED> By: Guicho Haddad MD, [facility] 10/30/17 1341 0652 0652 Guicho Haddad MD, [facility] /EPI
--- NOTE | ~2017-10-29 | HC ---
[facility] [place] [address] CONSULTATION Name: LUCIO RODRÍGUEZ Priya Room #: 403-P [facility] IN ..#: [id number] Admission: 10/29/17 Attend Phys: Romina Huertas MD Discharge: Date of : 40 Report #: [id number] THIS REPORT FOR: //name// CC: Aaron Huertas REASON FOR CONSULTATION: I was asked to evaluate concerning fever. HISTORY OF PRESENT ILLNESS: The patient is a 76-year-old with history of cirrhosis, urinary retention, chronic venous stasis disease and recurring lower extremity wounds as well as cellulitis. On day of admission, the patient had temperature up to 104 degrees associated with some shortness of breath and confusional state. Evaluation so far has revealed a right middle lobe infiltrate on chest x-ray. He had low colony counts of bacteria in his urine. He had negative blood cultures. Initial white blood cell count was normal. He has thrombocytopenia longstanding, creatinine was 1.3. He was placed on IV antibiotic therapy including vancomycin and Zosyn. He has defervesced. The patient was without pain. Denied any cough or sputum production. No shortness of breath or chest discomfort. No nausea, vomiting or diarrhea. Has an indwelling catheter. Continues to have swelling in his lower extremities. 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 He had back surgery, appendectomy. ALLERGIES: No known allergies. MEDICATIONS: As noted on his MAR, given vancomycin and Zosyn since his hospital stay. He is off his antibiotic suppression for his back. SOCIAL HISTORY: Nonsmoker, no significant alcohol intake. Resides in intermediate. REVIEW OF SYSTEMS: As noted above with no GI or complaints. PHYSICAL EXAMINATION: VITAL SIGNS: The patient was afebrile and hemodynamically stable. GENERAL: He is alert and cooperative. No acute distress. HEENT: Unremarkable. NECK: Supple. LUNGS: Clear. HEART: Regular, without appreciable murmur. ABDOMEN: Obese, mild distention, possible small amount of ascites. EXTREMITIES: Lower extremities, venous stasis changes with dermatitis and bilateral erythema. He has breakdown of the skin between his toes. Some bleeding in these regions. [address] [address] CONSULTATION Name: LUCIO RODRÍGUEZ Room #: 403-P [facility] IN [facility].#: [id number] Admission: 10/29/17 Attend Phys: Romina Huertas MD Discharge: Date of : 40 Report #: [id number] LABORATORY STUDIES: Creatinine is 1.3. Liver function test normal. Hemoglobin 12, WBC 6, platelet count 76,000. Blood cultures negative. Urine culture less than 10 to the third Proteus. Vancomycin trough 18. MRSA screen positive. Urinalysis had rare RBCs, WBCs, few bacteria. Urine culture as noted with less than 10 to the third Proteus species. Chest x-ray, right middle lobe inflammatory change. IMPRESSION: A 76-year-old, underlying cirrhosis, chronic venous stasis disease with venous stasis dermatitis and cellulitis bilaterally. Had high fever, source of which could be skin versus pulmonary source. PLAN: Recommend continuing antibiotic coverage, pending blood cultures. Repeat chest x-ray, wound care for his lower extremities, control edema and continue with elevation. <ELECTRONICALLY SIGNED> By: Neil Shelley MD 11/01/17 1541 1425 1559 Neil Shelley MD /nt
--- NOTE | ~2017-10-29 | D ---
[facility] [place] [address] DISCHARGE SUMMARY Name: LUCIO RODRÍGUEZ Priya Room #: 403-P [facility] IN M.R.#: [id number] Admission: 10/29/17 Attend Phys: Romina Huertas MD Discharge: 11/02/17 Date of : 40 Report #: [id number] THIS REPORT FOR: //name// CC: Aaron Huertas DATE OF SERVICE: 11/02/2017 FINAL DIAGNOSES: 1. Febrile illness. 2. Venous stasis wounds. 3. Cellulitis of the lower legs. 4. Cirrhosis. HOSPITAL COURSE: The patient was admitted from the alf with fever. Ultimately, cultures and urine were negative. Flu was negative as well. ID followed him and we treated him for presumed infection of the lower extremity wounds. He received topical wound care and his usual medications and had no other interval complication. PHYSICAL EXAMINATION: GENERAL: On the day of discharge, he was awake and alert. VITAL SIGNS: Stable and he had been afebrile through the course of his stay. LUNGS: Clear. HEART: Regular. ABDOMEN: Soft, normoactive bowel sounds. EXTREMITIES: 1+ edema with stasis dermatitis and wounds. DISPOSITION: [facility] be [facility]. He will continue same medications plus an oral antibiotic as directed by Dr. Shelley. Follow up with the wound clinic in 1 week. <ELECTRONICALLY SIGNED> By: Remy Hopkins MD 11/04/17 0921 1345 1355 Remy Hopkins MD /grace
--- NOTE | ~2017-10-29 | HC ---
[facility] [place] [address] CONSULTATION Name: LUCIO RODRÍGUEZ Room #: 403-P [facility] IN ..#: [id number] Admission: 10/29/17 Attend Phys: Romina Huertas MD Discharge: Date of : 40 Report #: [id number] THIS REPORT FOR: //name// CC: Aaron Lacy Romina Huertas DATE OF SERVICE: 10/31/2017 WOUND CARE CONSULTATION PERSONAL PHYSICIAN: Romina Huertas MD CHIEF COMPLAINT: Lower extremity excoriations. HISTORY OF PRESENT ILLNESS: This is a 76-year-old white male with a known history of chronic stasis dermatitis, who was admitted to the hospital for fever and confusion. The patient was felt to have early cellulitis of his lower extremities as well as a urinary tract infection. We have been asked to see the patient in regards to the stasis dermatitis changes he has in both lower extremities as well as excoriation around his groin. The patient says he does have mild pain associated with the stasis dermatitis. The patient states in the past, his legs actually have been more swollen, but the swelling has come down. The patient states he had fevers yesterday, but denies any fevers today. The patient denies any other associated wounds at this time. PAST MEDICAL HISTORY: Significant for liver cirrhosis, alcohol abuse, neuropathic bladder with chronic retention, peripheral neuropathy, type 2 diabetes, peripheral vascular disease, chronic stasis dermatitis. PAST SURGICAL HISTORY: Appendectomy and back surgery. CURRENT MEDICATIONS: Multiple, I have reviewed the patient's medication list, he is on IV antibiotics at this time. DRUG ALLERGIES: None. SOCIAL HISTORY: The patient does not smoke or drink alcohol at this time. Lives in a care facility. REVIEW OF SYSTEMS: CONSTITUTIONAL: The patient had fevers and chills at his care facility. NEUROLOGIC: The patient complains of generalized weakness, but no isolated weakness in arms or legs. EYES: No complaints. ENT: No complaints. CARDIAC: The patient has chronic lower extremity edema without chest pain or [facility] [address] [place] [address] CONSULTATION Name: LUCIO RODRÍGUEZ Room #: [address] [place] [address] [place] [facility].#: [id number] Admission: 10/29/17 Attend Phys: Romina Huertas MD Discharge: Date of : 40 Report #: [id number] palpitations. RESPIRATORY: The patient denies shortness of breath, but does have a slight cough productive in nature, but no wheezing. GASTROINTESTINAL: The patient denies nausea, vomiting, abdominal pain. GENITOURINARY: The patient denies urgency or frequency. The patient does have a chronic indwelling catheter. MUSCULOSKELETAL: No complaints. SKIN: The patient has chronic stasis dermatitis with excoriation in his groin. PHYSICAL EXAMINATION: VITAL SIGNS: Temperature 36.2, pulse , respiratory rate 18, BP 111/57. GENERAL: This is an alert and oriented x 3 pleasant white male who is in mild distress secondary to pain. HEENT: Normocephalic, atraumatic. Extraocular movements are dry. Pupils are round. Sclerae are white. NECK: Supple, without JVD or masses. LUNGS: Clear. HEART: Regular, without murmur. ABDOMEN: Soft, obese, nontender. EXTREMITIES: The patient moves extremities without difficulty. Bilateral lower extremities have significant stasis dermatitis changes, but no increased erythema or actual warmth. There is no evidence of any obvious open ulcerations noted on either lower extremity. Bilateral heels are intact. Evaluation of the groin reveals excoriation, erythema without signs of fungal rash. NEUROLOGIC: Cranial nerves 2-12 grossly intact. Motor and sensory grossly intact. LABORATORY VALUES: White count 6.0, hemoglobin 12.1. Albumin is 2.5. IMPRESSION: 1. Chronic stasis dermatitis, bilateral lower extremities without signs of cellulitis. 2. Groin excoriation secondary to moisture-associated dermatitis. 3. Protein calorie malnutrition -- severe with albumin 2.5. 4. Generalized debility. 5. Type 2 diabetes. PLAN: At this time, we will start the patient on ammonia lactate lotion to bilateral lower extremities for the severe dry and flaky skin and hold in place with Kerlix, have them changed once daily. We will put zinc based barrier cream into the groin twice daily on an as needed basis. We will make sure we maximize the patient's protein supplementation for healing. We will also utilize [address] [address] CONSULTATION Name: LUCIO RODRÍGUEZ Room #: 403-P [facility] IN ..#: [id number] Admission: 10/29/17 Attend Phys: Romina Huertas MD Discharge: Date of : 40 Report #: [id number] physical and occupational therapy for strengthening. We will continue to follow the patient. Continue all other current medications. <ELECTRONICALLY SIGNED> By: Bijan Longoria MD 11/01/17 1600 1133 1219 Bijan Longoria MD /nt
--- NOTE | ~2017-10-29 | H ---
[facility] [place] [address] HISTORY AND PHYSICAL Name: LUCIO RODRÍGUEZ Room #: 403-P [facility] IN .R.#: [id number] Admission: 10/29/17 Attend Phys: Romina Huertas MD Discharge: 11/02/17 Date of : 40 Report #: [id number] THIS REPORT FOR: //name// CC: Aaron Huertas ATTENDING PHYSICIAN: Romina Huertas MD DICTATING PHYSICIAN: Romina Huertas MD CHIEF COMPLAINT: Fever and confusion. HISTORY OF PRESENT ILLNESS: The patient is a 76-year-old gentleman with known history of chronic stasis dermatitis and urinary retention with chronic Potter catheter. The patient was in a group home facility where he was noted to have fever of 104. The patient was also having some shortness of air and weakness the morning of presentation to the ER. The patient presented to the Emergency Room where he was evaluated and noted to have multiple sources of infection. The Potter catheter drainage was very purulent. His bilateral lower extremity redness was noted for possible cellulitis and the chest x-ray showed evidence of infiltrate in the right lung base. The patient has been admitted to the hospital, started on IV antibiotics. He was confused last evening and was pulling out on his IV line. The patient this morning still continues to have lot of discomfort in his legs and is restless. He denied having any breathing difficulty. PAST MEDICAL HISTORY: Significant for history of liver cirrhosis, alcohol abuse, neuropathic bladder with chronic retention, peripheral neuropathy, type 2 diabetes mellitus, anxiety, history of osteomyelitis, peripheral vascular disease and recurrent urinary tract infection and diskitis. PAST SURGICAL HISTORY: Back surgery, appendectomy. ALLERGIES: He is not known to be allergic to medication. MEDICATIONS: He was at the group home facility were baclofen, gabapentin, lorazepam, MiraLax, omeprazole, multivitamin, oxycodone, Demadex and Tylenol. SOCIAL HISTORY: The patient does not smoke and does not drink alcohol. REVIEW OF SYSTEMS: He denied having any cough or nausea, abdominal pain. Did complain of having lower extremity pain. PHYSICAL EXAMINATION: GENERAL: Elderly gentleman, who appeared to be mildly confused. He was in bed, restless. VITAL SIGNS: He was febrile with a temperature of 37.6, pulse of 73, [address] [address] HISTORY AND PHYSICAL Name: LCUIO RODRÍGUEZ Room #: [facility].#: [id number] Admission: 10/29/17 Attend Phys: Romina Huertas MD Discharge: 11/02/17 Date of : 40 Report #: [id number] respiratory rate of 16, blood pressure was 167/83, oxygen saturation 96% on room air. HEENT: There was no pallor, no icterus. Mucosa was moist. LUNGS: Clear to auscultation with occasional crackles in the lung base. HEART: First and second heart sound, which was irregular. ABDOMEN: Soft, nontender, bowel sounds normally heard. The patient had a Potter catheter in place with evidence of excoriation in the groin area. EXTREMITIES: Both lower extremities, there was 2+ edema and chronic induration with redness. NEUROLOGIC: Nonfocal. The patient was moving all 4 extremities equally and normally. LABORATORY DATA: On admission showed urine, which was positive for leukocyte esterase and nitrites with blood. His potassium was 3, chloride 33, bicarbonate of 19, glucose of 151, magnesium of 1.5, sodium was 143. Hemoglobin was 12.1. Influenza antigen A and B was negative. Blood cultures were pending. Chest x-ray showed opacities in the medial right lung base suspicious for developing pneumonitis. There was cardiomegaly without evidence of congestive heart failure. ASSESSMENT: 1. Pneumonia. 2. Chronic urinary tract infection. 3. Urinary retention. 4. Stasis dermatitis with possible cellulitis. 5. Alcoholic liver cirrhosis. 6. Encephalopathy. PLAN: To continue IV antibiotics and have Infectious Disease consultation, will also continue his home medications and try and control his pain and replace his potassium. <ELECTRONICALLY SIGNED> By: Romina Huertas MD 11/04/17 1129 0905 1050 Romina Huertas MD /nt
[~2017-10-29 06:39] MED LIST changes: +BUSPIRONE HCL10 MG; +CEFEPIME 1 GM VI1 G2 INJECTION; +DEMADEX20 MG PO; +LEVAQUIN 500 M500 M2 PO
[2017-10-29 06:40] VITALS: BP 137/59
[2017-10-29 07:25] LABS: ABSOLUTE NEUTROPHILS 4.5 thou/uL (1.4-8.2); BASOPHILS 1.3 % (0.0-2.0); EOSINOPHILS 1.7 % (0.0-3.0); HEMOGLOBIN 12.1 gm/dL (14.0-18.0); MCH 31.7 pg (26.0-34.0); MCHC 34.6 g/dL (28.0-37.0); MCV 91.7 fL (80.0-100.0); MONOCYTES 9.2 % (1.0-8.0); PLATELET COUNT 76 thou/uL (150-400); POLYS 75.8 % (36.0-66.0); RBC 3.81 mil/uL (4.50-6.00); RDW 14.3 % (10.5-14.5)
[2017-10-29 07:37] LABS: ANION GAP 9 mmol/L (7-16); BUN 19 mg/dL (7-18); CALCIUM 9.1 mg/dL (8.5-10.1); CHLORIDE 101 mmol/L (98-107); CO2 33 mmol/L (21-32); CREATININE 1.3 mg/dL (0.7-1.3); GLUCOSE 151 mg/dL (74-106); SODIUM 143 mmol/L (136-145)
[2017-10-29 07:45] LABS: ALBUMIN 2.5 g/dL (3.4-5.0); MAGNESIUM 1.5 mg/dL (1.8-2.4); SGOT 39 U/L (15-37); SGPT 17 U/L (30-65); TOTAL BILIRUBIN 1.9 mg/dL (<0.1-1.0); TROPONIN-I < 0.04 ng/mL (<0.06)
[2017-10-29 08:10] LABS: URINE BILIRUBIN NEGATIVE (Negative); URINE BLOOD 3+ (Negative); URINE CLARITY SL CLOUDY; URINE GLUCOSE-RANDOM* NEGATIVE (Negative); URINE KETONES NEGATIVE (Negative); URINE NITRITE-REFLEX NEGATIVE (Negative); URINE PROTEIN (DIPSTICK) 1+ (Negative)
[2017-10-29] MEDS ORDERED: ATIVAN0.5 MG PO (08:15)
[2017-10-29 08:16] LABS: URINE COLOR AMBER; URINE LEUKOCYTES-REFLEX 2+ (Negative)
[2017-10-29 08:20] VITALS: BP 137/59
[2017-10-29 08:27] LABS: BACTERIA-REFLEX 1-9 Few /HPF (None Seen); CASTS None Seen /LPF (None Seen); CRYSTALS None Seen /LPF (None Seen); SQUAMOUS None Seen /LPF (0-3); URINE RBC >20 Many /HPF (0-2); URINE WBC-REFLEX 0-5 Rare /HPF (0-5)
[2017-10-29 09:55] VITALS: BP 128/66
[2017-10-29 09:58] VITALS: BP 102/68
[2017-10-29 19:16] VITALS: BP 126/64
[2017-10-30 04:08] VITALS: BP 126/64
[2017-10-30 07:34] VITALS: BP 167/83
[2017-10-30 16:50] VITALS: BP 144/70
[2017-10-30 20:00] VITALS: BP 116/62
[2017-10-31 04:00] VITALS: BP 122/63
[2017-10-31 08:33] VITALS: BP 111/57
[2017-10-31 18:16] VITALS: BP 127/69
[2017-10-31 20:08] VITALS: BP 110/58
[2017-11-01 05:12] VITALS: BP 112/59
[2017-11-01 06:15] LABS: CALCIUM 8.3 mg/dL (8.5-10.1); CREATININE 0.9 mg/dL (0.7-1.3); POTASSIUM 3.7 mmol/L (3.5-5.1)
[2017-11-01 06:49] LABS: HEMATOCRIT 29.6 % (42.0-52.0); HEMOGLOBIN 10.3 gm/dL (14.0-18.0); MCHC 34.6 g/dL (28.0-37.0); MCV 92.5 fL (80.0-100.0); RBC 3.2 mil/uL (4.50-6.00); RDW 14.6 % (10.5-14.5); WBC 4.3 thou/uL (4.0-11.0)
[2017-11-01 07:56] VITALS: BP 134/51
[2017-11-01 16:00] VITALS: BP 123/57
[2017-11-01 19:55] VITALS: BP 102/53
[2017-11-02 03:52] VITALS: BP 113/35
[2017-11-02 08:19] VITALS: BP 125/56
[2017-11-02] MEDS ORDERED: OXYCODONE HCL 55 MG PO (12:42)
[2017-11-02] MEDS ORDERED: ATIVAN0.5 MG PO (12:43)
[2017-11-02] MEDS ORDERED: CEFDINIR300 MG PO (14:29)
[2018-03-29] MEDS ORDERED: DEMADEX20 MG PO (15:24)
[2018-03-29] MEDS ORDERED: MIRALAX17 GM PO (15:24)
[2018-03-29] MEDS ORDERED: OXYCODONE HCL 55 MG PO (15:26)
[2018-03-29] MEDS ORDERED: CIPRO500 MG PO (15:29)
[2018-03-29] MEDS ORDERED: LIORESAL 10 MG10 MG PO (15:30)
[2018-03-29] MEDS ORDERED: TYLENOL325 MG PO (15:31)
[2018-03-29] MEDS ORDERED: ATIVAN0.5 MG PO (15:31)
== END 2017-11-02 16:27 | DRG 602 ==
LOC: ER 06:39 → EROBS 08:11 → 4N 08:11
PROVIDERS: Emergency Medicine; Internal Medicine Geriatric Medicine
DX: L03.116 Cellulitis of left lower limb (principal); G93.40 Encephalopathy, unspecified; E43 Unspecified severe protein-calorie malnutrition; N39.0 Urinary tract infection, site not specified; L03.115 Cellulitis of right lower limb; I87.2 Venous insufficiency (chronic) (peripheral); E11.51 Type 2 diabetes mellitus with diabetic peripheral angiopathy without gangrene; M19.90 Unspecified osteoarthritis, unspecified site; F41.9 Anxiety disorder, unspecified; K70.30 Alcoholic cirrhosis of liver without ascites; R33.9 Retention of urine, unspecified; N40.0 Benign prostatic hyperplasia without lower urinary tract symptoms; E11.43 Type 2 diabetes mellitus with diabetic autonomic (poly)neuropathy; E87.6 Hypokalemia; E83.42 Hypomagnesemia; N31.9 Neuromuscular dysfunction of bladder, unspecified; S30.811A Abrasion of abdominal wall, initial encounter; X58.XXXA Exposure to other specified factors, initial encounter; Y93.89 Activity, other specified; Y92.89 Other specified places as the place of occurrence of the external cause; Z90.49 Acquired absence of other specified parts of digestive tract; Y99.8 Other external cause status; Z68.30 Body mass index [BMI] 30.0-30.9, adult
CPT/HCPCS: 10091

== ENCOUNTER 2017-12-22 06:04 | Inpatient (IN) | payer OTHER ==
[~2017-12-22] VITALS: Ht 172.7 cm; Wt 103.4 kg
--- NOTE | ~2017-12-22 | EKG ---
[address] [address] ELECTROCARDIOGRAM REPORT Name: LUCIO RODRÍGUEZ Priya Room #: 170-2 ADM IN M.R.#: [id number] Admission: 12/22/17 Attend Phys: Charan Stephen MD Discharge: Date of : 40 Report #: [id number] THIS REPORT FOR: //name// [facility] ED Test Date: 2017-12-22 Test Time: 06:47:55 Pat Name: LUCIO RODRÍGUEZ Department: Room: Gender: M Certified Phlebotomist: EBONIE OHARA : 1940 Requested By: Rustam Liao Order Number: [id number] MD: Marcos Ray Measurements Intervals [place] Rate: 88 P: 76 [place]: 189 QRS: 35 QRSD: 100 T: 23 QT: 410 QTc: 496 Interpretive Statements Sinus rhythm Baseline wander in lead(s) II,III,aVL,aVF Compared to ECG 10/29/2017 06:52:38 Sinus tachycardia no longer present Electronically Signed On 12-22-2017 8:24:23 CDT by Marcos Ray [email or web address] <ELECTRONICALLY SIGNED> By: Marcos Ray MD 12/22/17 0824 0647 0647 Marcos Ray MD /EPI
[~2017-12-22 06:04] MED LIST changes: +CEFDINIR300 MG PO
[2017-12-22 06:05] VITALS: BP 136/56
[2017-12-22] MEDS ORDERED: MIRALAX17 GM PO (06:10)
[2017-12-22] MEDS ORDERED: MAGNESIUM400 MG PO (06:10)
[2017-12-22] MEDS ORDERED: CENTRUM SILVER1 EAC2 PO (06:10)
[2017-12-22] MEDS ORDERED: NEURONTIN600 MG PO (06:11)
[2017-12-22] MEDS ORDERED: POTASSIUM20 PO (06:11)
[2017-12-22] MEDS ORDERED: DEMADEX20 MG PO (06:11)
[2017-12-22] MEDS ORDERED: PROSTAT PO (06:11)
[2017-12-22] MEDS ORDERED: TRIAMCINOLONE A80 G2 TOP (06:13)
[2017-12-22 06:47] LABS: URINE BILIRUBIN NEGATIVE (Negative); URINE BLOOD TRACE (Negative); URINE CLARITY CLEAR; URINE COLOR YELLOW; URINE GLUCOSE-RANDOM* NEGATIVE (Negative); URINE KETONES NEGATIVE (Negative); URINE LEUKOCYTES-REFLEX 1+ (Negative); URINE NITRITE-REFLEX NEGATIVE (Negative); URINE PROTEIN (DIPSTICK) NEGATIVE (Negative)
[2017-12-22 06:48] LABS: ABSOLUTE NEUTROPHILS 3.9 thou/uL (1.4-8.2); BASOPHILS 1.5 % (0.0-2.0); EOSINOPHILS 4.4 % (0.0-3.0); HEMATOCRIT 35.8 % (42.0-52.0); HEMOGLOBIN 12.3 gm/dL (14.0-18.0); LYMPHOCYTES 16.3 % (24.0-44.0); MCH 32.5 pg (26.0-34.0); MCHC 34.3 g/dL (28.0-37.0); MCV 94.7 fL (80.0-100.0); MONOCYTES 9.5 % (1.0-8.0); PLATELET COUNT 76 thou/uL (150-400); POLYS 68.3 % (36.0-66.0); RBC 3.78 mil/uL (4.50-6.00); RDW 15.6 % (10.5-14.5); WBC 5.6 thou/uL (4.0-11.0)
[2017-12-22 06:50] LABS: SSA (PROTEIN CONFIRMATORY) NEGATIVE (Negative)
[2017-12-22 06:58] LABS: CASTS None Seen /LPF (None Seen); CRYSTALS None Seen /LPF (None Seen); SQUAMOUS None Seen /LPF (0-3); URINE WBC-REFLEX 6-15 Few /HPF (0-5)
[2017-12-22 06:59] LABS: URINE RBC 0-2 Rare /HPF (0-2)
[2017-12-22 07:04] LABS: ANION GAP 6 mmol/L (7-16); BUN 21 mg/dL (7-18); CALCIUM 9.1 mg/dL (8.5-10.1); CHLORIDE 109 mmol/L (98-107); CO2 31 mmol/L (21-32); GLUCOSE 116 mg/dL (74-106); POTASSIUM 3.3 mmol/L (3.5-5.1); SODIUM 146 mmol/L (136-145)
[2017-12-22 07:11] LABS: ALBUMIN 2.8 g/dL (3.4-5.0); SGOT 32 U/L (15-37); SGPT 15 U/L (30-65); TOTAL BILIRUBIN 1.6 mg/dL (<0.1-1.0); TOTAL PROTEIN 6.7 g/dL (6.4-8.2); TROPONIN-I < 0.04 ng/mL (<0.06)
[2017-12-22 07:37] VITALS: BP 133/54
[2017-12-22 14:06] VITALS: BP 133/54
[2017-12-22 15:18] VITALS: BP 143/65
[2017-12-22 19:38] VITALS: BP 129/61
[2017-12-22 23:47] VITALS: BP 145/53
[2017-12-23 07:20] VITALS: BP 120/67
[2017-12-23 08:12] LABS: CALCIUM 8.3 mg/dL (8.5-10.1); CREATININE 1.2 mg/dL (0.7-1.3); POTASSIUM 3.7 mmol/L (3.5-5.1)
[2017-12-23 08:51] LABS: ABSOLUTE NEUTROPHILS 2.8 thou/uL (1.4-8.2); BASOPHILS 1.5 % (0.0-2.0); EOSINOPHILS 4.7 % (0.0-3.0); HEMATOCRIT 31.3 % (42.0-52.0); HEMOGLOBIN 10.9 gm/dL (14.0-18.0); LYMPHOCYTES 15.3 % (24.0-44.0); MCH 33.2 pg (26.0-34.0); MCHC 34.8 g/dL (28.0-37.0); MCV 95.4 fL (80.0-100.0); MONOCYTES 10.6 % (1.0-8.0); POLYS 67.9 % (36.0-66.0); RBC 3.28 mil/uL (4.50-6.00); RDW 15.8 % (10.5-14.5); WBC 4.2 thou/uL (4.0-11.0)
[2017-12-23 09:22] LABS: PLATELET COUNT 56 thou/uL (150-400); PLATELET ESTIMATE DECREASED
[2017-12-23 17:09] LABS: GLYCOHEMOGLOBIN (HGB A1C) 5.2 % (4.8-5.6)
[2017-12-23 19:12] VITALS: BP 143/70
[2017-12-24 04:47] VITALS: BP 144/60
[2017-12-24 07:10] VITALS: BP 139/71
[2017-12-24 08:25] LABS: HEMATOCRIT 28.9 % (42.0-52.0); HEMOGLOBIN 10.1 gm/dL (14.0-18.0); MCH 33.1 pg (26.0-34.0); MCHC 34.9 g/dL (28.0-37.0); PLATELET COUNT 55 thou/uL (150-400); RBC 3.05 mil/uL (4.50-6.00); RDW 15.5 % (10.5-14.5); WBC 3.7 thou/uL (4.0-11.0)
[2017-12-24 08:33] LABS: CALCIUM 8.4 mg/dL (8.5-10.1); CREATININE 0.9 mg/dL (0.7-1.3); POTASSIUM 3.5 mmol/L (3.5-5.1)
[2017-12-24 09:09] LABS: ABSOLUTE NEUTROPHILS 2.5 thou/uL (1.4-8.2)
[2017-12-24 11:20] VITALS: BP 131/70
[2017-12-24 15:15] VITALS: BP 119/66
[2017-12-24 19:16] VITALS: BP 116/63
[2017-12-25 04:57] VITALS: BP 121/70
[2017-12-25 07:15] VITALS: BP 132/66
[2017-12-25 12:05] VITALS: BP 118/64
[2017-12-25 16:30] VITALS: BP 106/56
[2017-12-25 19:28] VITALS: BP 124/68
[2017-12-26 04:58] VITALS: BP 139/72
[2017-12-26 08:56] VITALS: BP 113/63
[2017-12-26] MEDS ORDERED: KEFLEX500 M1 PO (10:27)
[2017-12-26 13:09] VITALS: BP 108/63
== END 2017-12-26 14:22 | DRG 871 ==
LOC: ER 06:04 → EROBS 07:16 → 2N 07:16
PROVIDERS: Emergency Medicine; Hospitalist
DX: A41.9 Sepsis, unspecified organism (principal); G93.40 Encephalopathy, unspecified; N39.0 Urinary tract infection, site not specified; L03.116 Cellulitis of left lower limb; L03.115 Cellulitis of right lower limb; B96.4 Proteus (mirabilis) (morganii) as the cause of diseases classified elsewhere; N31.9 Neuromuscular dysfunction of bladder, unspecified; E11.40 Type 2 diabetes mellitus with diabetic neuropathy, unspecified; I87.2 Venous insufficiency (chronic) (peripheral); M19.90 Unspecified osteoarthritis, unspecified site; F41.9 Anxiety disorder, unspecified; K70.30 Alcoholic cirrhosis of liver without ascites; N40.0 Benign prostatic hyperplasia without lower urinary tract symptoms; E11.51 Type 2 diabetes mellitus with diabetic peripheral angiopathy without gangrene; Z79.899 Other long term (current) drug therapy; Z90.49 Acquired absence of other specified parts of digestive tract
CPT/HCPCS: 10081

== ENCOUNTER → 2018-03-29 | Outpatient (CLI) | payer OTHER ==
[~2018-03-29] VITALS: Ht 170.2 cm; Wt 89.8 kg
[~2018-03-29] MED LIST changes: +CENTRUM SILVER1 EAC2 PO; +KEFLEX500 M1 PO; +MAGNESIUM400 MG PO; +PROSTAT PO; +TRIAMCINOLONE A80 G2 TOP; +TYLENOL325 MG PO
[2018-03-29 15:11] VITALS: BP 115/64
== END ==
LOC: PAIN 07:09
DX: M25.562 Pain in left knee (principal)

== ENCOUNTER → 2018-10-20 | Outpatient (CLI) | payer OTHER ==
[~2018-10-20] VITALS: Ht 172.7 cm; Wt 83.5 kg
--- NOTE | ~2018-10-20 | HPC ---
[facility] [place] [address] PAIN MANAGEMENT CONSULTATION Name: ANNELUCIO Priya [id number] Admission: 10/20/18 ������������������ Attend Phys: Quincy Pearson MD Discharge: ������������������ Date of : 40 Report #: [id number] THIS REPORT FOR: //name// CC: Aaron Gustafson DATE OF SERVICE: 10/20/2018 PRIMARY CARE PHYSICIAN: Aaron Lacy DO CHIEF COMPLAINT: Left hip pain. HISTORY OF PRESENT ILLNESS: The patient is a 77-year-old gentleman who has been seen in the pain clinic in the past because of hip pain. He has also had some pain in his left knee. He has been experiencing pain in his low back area in the area of the buttocks. He sits in a wheelchair predominantly. He has some concerns and would like to consider an injection in his low back area to help with the pain. He denies falling. Feels that the pain is in his lower back. It does not radiate down into his legs. It is primarily on his left buttocks where he is sitting. States that he has a new paddle in his wheelchair. Sitting is very comfortable, does not feel to be as though it is putting any significant pressure on his buttocks area. He has had a chronic indwelling catheter, which has been removed. It has been in place per his report for about a year. He has been undergoing daily therapy to help with walking. He has had some increased swelling in his lower extremities. He has been wearing compression stockings. States that his legs sometimes developed blisters, which become enlarged and sometimes break. He says that he is not having any problems with infections at this juncture. He has had history of urinary tract infections. Feels that the use of OxyContin and oxycodone, have been helpful. It helps with his buttocks pain as well as with some pain, which he has been experiencing in his knee. ALLERGIES: No known drug allergies. CURRENT MEDICATIONS: Tylenol 325 mg q.6 hours p.r.n., Ativan 0.25 mg at bedtime, baclofen 10 mg t.i.d., Cipro 500 mg q.12 hours, OxyIR 5 mg p.r.n., MiraLax 17 g, Demadex 20 mg, Aristocort 0.1% applied to affected areas in the bilateral lower extremities, Neurontin 600 mg b.i.d., Centrum men's vitamin, magnesium 400 mg. PAST MEDICAL HISTORY: Acute encephalopathy, acute renal failure, altered mental status, cellulitis, chronic venous insufficiency, cirrhosis of the liver, diabetes, diabetic neuropathy, dyspnea, hyperbilirubinemia, lumbar compression fracture history, neurogenic bladder, urinary tract infection, venous stasis [address] [address] PAIN MANAGEMENT CONSULTATION Name: ANNELUCIO Priya [facility]ITAL[facility] [id number] Admission: 10/20/18 ������������������ Attend Phys: Quincy Pearson MD Discharge: ������������������ Date of : 40 Report #: [id number] dermatitis of both lower extremities, alcoholic liver disease, anxiety, and post-laminectomy syndrome. PAIN CLINIC ASSESSMENT AND PQRS: 1. History of osteoarthritis. 2. The patient does have arthritic changes in his knee and low back. 3. Height 5 feet 8 inches, weight 184 pounds, BMI is 28. 4. Vital Signs: Blood pressure 112/64, pulse 61, respiratory rate 14, room air saturation 95%. 5. Pain intensity 12/22. 6. Fall risk. The patient has not fallen in the last 3 months. 7. Blood thinner. The patient is not on a blood thinning medication. 8. Hypertension. The patient is being treated for hypertension. 9. Opioids greater than 6 weeks. The patient received some opioid medications from his primary physician. 10. Risk assessment tool, moderate for opioid use. 11. Functional assessment tool. 12. Recreational drug use, the patient denies use of recreational drugs at this juncture. 13. Tobacco: The patient denies use of tobacco. 14. Alcohol: The patient denies use of alcohol at this juncture. PHYSICAL EXAMINATION: GENERAL: The patient is a well-developed, well-nourished, white male. Appears his stated age. He is alert and oriented x 3. His affect is appropriate. Speech is fluent. HEENT: Normocephalic, atraumatic. Extraocular eye muscles intact. Sclerae nonicteric. Mucous membranes are moist. NECK: Without adenopathy or JVD. Upper extremity muscle strength is judged to be 4/5 for the upper extremities. HEART: Regular rate. ABDOMEN: Nontender. Bowel sounds present. MUSCULOSKELETAL: The patient without significant scoliosis, kyphosis or lordosis. Complains of pain and discomfort in the low back area on the right near the buttocks and near the outflow tract of the sciatic nerve. Palpation in this area does reproduce pain and discomfort in the area of his sacrum and near the sciatic outflow tract. The patient is not complaining of pain radiating down in a L5-S1 dermatomal distribution. Needs and uses both hands to go from a sitting to a standing position and support himself. Appears somewhat weak and somewhat unstable. The patient complains of needing to use the bathroom. He was provided a urinal. We need to assist him while he do it. He was able to void. IMPRESSION: 1. Pain in the low back and buttocks area, does not appear that skin has broken down, has a focal area of discomfort. Palpation in this area does reproduce his [facility] [address] [place] [address] PAIN MANAGEMENT CONSULTATION Name: LUCIO RODRÍGUEZ Room #: REG [facility] Rm.#: [id number] Admission: 10/20/18 ������������������ Attend Phys: Quincy Pearson MD Discharge: ������������������ Date of : 40 Report #: [id number] pain. 2. Acute encephalopathy. 3. Acute renal failure. 4. Altered mental status. 5. Cellulitis. 6. Chronic venous insufficiency. 7. Cirrhosis of the liver. 8. Diabetes. 9. Diabetic neuropathy. 10. Dyspnea. 11. Hyperbilirubinemia. 12. Lumbar compression fracture history. 13. Neurogenic bladder. 14. Urinary tract infection. 15. Venous stasis dermatitis of both lower extremities. 16. Alcoholic liver disease. 17. Anxiety. 18. Post-laminectomy syndrome. RECOMMENDATIONS: We discussed treatment option with the patient. At this juncture, I do not feel that an epidural steroid injection or an injection in that area could be very beneficial. The patient has some decreased muscle bulk. Injecting in this area might cause some numbness in the area, but I am not sure that it will really be of that much benefit. It would most likely cause some numbing of the sciatic nerve. The patient has some weeping of the lower extremities. Possibility of providing steroid injection or by mouth might be more problematic than helpful. Steroids can decrease the patient's ability to fight off an infection. I think given what the medications that he is on gabapentin and the oxycodone, which he feels is helpful would be a reasonable way to continue to address his pain. After discussing the possible risks versus benefits of changes in his medication, the patient feels that continuing his current medical regimen does seem like a reasonable option. He will continue with the medications of baclofen to help with the muscle spasms 10 mg, the patient will take 5 mg t.i.d., OxyIR 5 mg q.4-6 hours p.r.n., and gabapentin 600 mg p.o. b.i.d. We would like to thank you for letting us participate in his care. We hope he continues to improve. ��������������������������������������������� ���������������������������������������� By: ��������������������������������������������� [id number] 0020 Quincy Pearson MD /JOSE R
[2018-10-20 12:45] VITALS: BP 112/64
--- NOTE | 2018-10-20 12:57 | NUR ---
Pain Clinic Assessment: 1. History of Osteoarthritis: YES History of Rheumatoid Arthritis: NO 2. Height: 5 ft. 8 in. 172.7 cm. Weight: 184.0 lb. oz. 83.462 kg. Patient's BMI: 28.0 3. Vital Signs: BP: 112/64 Pulse: 61 Resp: 14 Temp: 02 Sat: 95 ECG Mon: 4. Pain Intensity: 5 5. Fall Risk: Dizziness: N Needs help standing or walking: Y Fallen in the last 3 months: N Fall risk comments: 6. Patient on Blood Thinner: None 7. History of Hypertension: Y 8. Opioid Therapy greater than 6 weeks: N Opiate Contract Signed: 9. Risk Assessment Tool Provided: 10. Functional Assessment Tool: 11. Recreational Drug Use: Never Drug Type: Tobacco Use: Never Smoker Tobacco Type: Amount or Packs/day: How Many Years: Alcohol Use: Past use Frequency: Quant:
== END ==
LOC: PAIN 06:45
DX: M25.552 Pain in left hip (principal); G89.29 Other chronic pain; Z79.899 Other long term (current) drug therapy; Z79.891 Long term (current) use of opiate analgesic